=== PATIENT | female | born 1965 | race Caucasian/White ===

== ENCOUNTER → 2024-01-20 08:25 | Outpatient (REF) | payer OTHER, SELFPAY | LOC: WDC 08:25 | PROVIDERS: ATTENDING PHYSICIAN Obstetrics & Gynecology Gynecology; FAMILY PHYSICIAN Family Medicine | DX: Z12.31 Encounter for screening mammogram for malignant neoplasm of breast (principal) | CPT/HCPCS: 77063; 77067 ==

== ENCOUNTER → 2024-03-02 13:55 | Outpatient (REF) | payer OTHER, SELFPAY | LOC: PAVMRI 13:55 | PROVIDERS: ATTENDING PHYSICIAN Family Medicine | DX: M25.511 Pain in right shoulder (principal); S49.91XA Unspecified injury of right shoulder and upper arm, initial encounter; M25.611 Stiffness of right shoulder, not elsewhere classified | CPT/HCPCS: 73221 ==

== ENCOUNTER → 2024-07-05 09:48 | Outpatient (REF) | payer OTHER, SELFPAY | LOC: RAD 09:48 | PROVIDERS: ATTENDING PHYSICIAN Family Medicine | DX: K21.9 Gastro-esophageal reflux disease without esophagitis (principal) | CPT/HCPCS: 74246 ==

== ENCOUNTER → 2024-08-06 06:34 | Day surgery (SDC) | payer OTHER, SELFPAY | LOC: GI 06:34 | PROVIDERS: ATTENDING PHYSICIAN Internal Medicine; FAMILY PHYSICIAN Family Medicine | PROC: 0DB38ZX Excision of Lower Esophagus, Via Natural or Artificial Opening Endoscopic, Diagnostic (ICD-10-PCS; 2024-08-06) | PROC: 0DB68ZX Excision of Stomach, Via Natural or Artificial Opening Endoscopic, Diagnostic (ICD-10-PCS; 2024-08-06) | PROC: 0DB18ZX Excision of Upper Esophagus, Via Natural or Artificial Opening Endoscopic, Diagnostic (ICD-10-PCS; 2024-08-06) | PROC: 0DB98ZX Excision of Duodenum, Via Natural or Artificial Opening Endoscopic, Diagnostic (ICD-10-PCS; 2024-08-06) | PROC: 0DB88ZX Excision of Small Intestine, Via Natural or Artificial Opening Endoscopic, Diagnostic (ICD-10-PCS; 2024-08-06) | DX: K21.9 Gastro-esophageal reflux disease without esophagitis (principal); K44.9 Diaphragmatic hernia without obstruction or gangrene; K31.89 Other diseases of stomach and duodenum | CPT/HCPCS: 43239; 88305; 88342 ==

== ENCOUNTER 2024-08-24 12:46 | Emergency (ER) | payer OTHER, SELFPAY ==
[2024-08-24 12:55] VITALS: BP 163/88
--- NOTE | 2024-08-24 14:26 | ED.GENMED ---
History of Present Illness
General
Chief Complaint: Fall
Time Seen by Provider: 08/24/24 13:55
History of Present Illness
History of Present Illness:
Patient is a 59-year-old woman presenting to the emergency department after a fall. Patient states that she was walking her dog when she slipped and fell landing on her bottom and landing on her left elbow. Did not hit her head or lose
consciousness. She is not on a blood thinner. She was able to ambulate. Her only complaint is her left elbow. She does note some mild swelling. No numbness tingling. No weakness. No trauma elsewhere.
Phy Exam
Physical Exam
Physical Exam:
GENERAL: no acute distress
HEENT: atraumatic, extraocular muscles intact, no signs of entrapment, dentition intact, no other obvious trauma
NECK: no midline tenderness, normal range of motion, no other obvious trauma
BACK: no midline tenderness, no other obvious trauma
CHEST: no tenderness, no flail segment, no subcutaneous emphysema, no other obvious trauma
LUNGS: clear to auscultation bilaterally
CARDIOVASCULAR: regular rate and rhythm
ABDOMEN: soft, non-tender, no masses, no other obvious trauma
PELVIS: stable, no obvious injury
EXTREMITIES: moving all extremities, distal pulses intact, tenderness to the left elbow with slightly limited range of motion secondary to pain
NEUROLOGIC: awake, alert x 3, no focal deficits
Course
Orders/Labs/Results
Orders:
Orders
08/24/24 12:58
CR Elbow - Left Min 3 Views Urgent
Comment:
Reason For Exam: pain
Forearm, Left 2 View [CR Forearm - Left 2 View] Urgent
Comment:
Reason For Exam: pain
08/24/24 14:19
Sling Left-Treatment ONCE
Ibuprofen [Motrin] 800 mg PO NOW STA
Vital Signs
Initial and Last Documented VS:
Initial Vital Signs
Temp Pulse Resp BP Pulse Ox
98.1 F 112 20 163/88 99
08/24/24 12:55 08/24/24 12:55 08/24/24 12:55 08/24/24 12:55 08/24/24 12:55
Last Documented Vital Signs
Temp Pulse Resp BP Pulse Ox
98.1 F 112 20 163/88 99
08/24/24 12:55 08/24/24 12:55 08/24/24 12:55 08/24/24 12:55 08/24/24 12:55
MDM/Problems Addressed
Differential Diagnosis Includes:
Patient is a 59-year-old woman presenting to the emergency department left elbow pain after a mechanical fall. Vitals are notable for hypertension and exam does show tenderness over the left elbow with distal pulse 6 intact and she is
neurovascularly intact. Concern for fracture. X-ray per my interpretation with radial head fracture. Will place patient in sling and pain control. Patient educated on early mobility after 5 to 7 days in sling. Patient given orthopedic surgery
for follow-up. Strict return precautions given including worsening numbness tingling discoloration or worsening pain. Will discharge this time.
*Critical Care Note
Total Time (30-74mins, 75-104mins- exclusive of procedures): Not Applicable
ED Attending Note
-
Portions of this chart may have been created with voice recognition software.� Occasional wrong word or��sound alike� substitutions may have occurred due to the inherent limitations of voice recognition software.
Discharge Plan
Departure
Patient Disposition: Home (Routine Discharge)
Date of Disposition: 08/24/24
Time of Disposition: 14:37
Patient with high blood pressure during this ER visit?: Yes
Discharge Problem:
Fracture of head of left radius
Instructions: How to Use a Shoulder Sling ED, Elbow Fracture, Adult ED
Referrals:
Marquise Bass DO [Family Provider] -
Jose Angel Bosch MD [Active] -
Activity Restrictions/Additional Instructions:
You were seen in the Emergency Department today for an elbow fracture. Please follow-up with orthopedics as discussed.
We would like for you to follow up with your primary care physician for further evaluation. If you experience fever, worsening of your symptoms, or develop any other new or concerning symptoms, please return to the Emergency Department immediately.
Please see the attached sheet for additional information.
Interventions
Interventions:
*Risk Screen - Suicide Last Done: 08/24/24 12:55
*General Assessment Last Done: 08/24/24 14:35
*Neglect/Abuse Screening Last Done: 08/24/24 14:35
ED-Musculoskeletal Assessment Last Done: 08/24/24 14:34
Discharge Date and Time
Print Language: MALIAN
[2024-08-24] MEDS: MOTRIN 800 MG PO (14:30)
[2024-08-24 14:37] VITALS: BP 124/87
== END 2024-08-24 14:49 | disposition home or self-care (01) ==
LOC: EMR 12:46
PROVIDERS: EMERGENCY PHYSICIAN Student in an Organized Health Care Education/Training Program; FAMILY PHYSICIAN Family Medicine
DX: S52.122A Displaced fracture of head of left radius, initial encounter for closed fracture (principal); W01.0XXA Fall on same level from slipping, tripping and stumbling without subsequent striking against object, initial encounter; Y93.K1 Activity, walking an animal
CPT/HCPCS: 99283; 73080; 73090

== ENCOUNTER 2024-10-29 14:29 | Inpatient (IN) | payer OTHER, SELFPAY ==
[2024-10-12 11:14] LABS: Hematocrit 42.1 % (37.0-47.0); Hemoglobin 13.9 g/dL (12.0-16.0); Mean Corpuscular Hgb 27.9 pg (27.0-31.0); Mean Corpuscular Volume 84.4 fL (81.0-99.0); Mean Platelet Volume 10.8 fL (7.4-10.4); Platelet Count 238 10^3/uL (130-400); Red Blood Cell Count 4.99 10^6/uL (4.20-5.40); Red Cell Dist. Width 12.2 % (11.5-14.5); White Blood Cell Count 6.9 10^3/uL (4.8-10.8)
[2024-10-12 11:44] LABS: Blood Urea Nitrogen 11 mg/dl (7-17); Calcium 9.3 mg/dl (8.4-10.2); Carbon Dioxide 27 mmol/L (22-30); Chloride 101 mmol/L (98-107); Glucose 91 mg/dl (70-99); Potassium 4.3 mmol/L (3.5-5.1); Sodium 136 mmol/L (135-145); eGFR > 60.00
[2024-10-12 12:52] VITALS: BMI 33.0
[2024-10-29] VITALS (21 sets, daily range): BP systolic 95–118; BP diastolic 50–84; BMI 33.0
[2024-10-29] MEDS: NORMOSOL-R/PLASMALYTE-A 1000 IV (09:58)
[2024-10-29] MEDS: TYLENOL 1000 MG PO (09:58)
[2024-10-29] MEDS: TRANSDERM-SCOP 1 PATCH TRANSDERM (10:14)
[2024-10-29] MEDS: EMEND 40 MG PO (10:14)
--- NOTE | 2024-10-29 14:26 | W.IMMPOSTOP ---
Surgical Immed Post Op Note
-
Primary Surgeon: Nelda
Assisting Surgeon: RUFINO Garrett
Pre-op Diagnosis: Paraesophageal hernia
Post-op Diagnosis: Paraesophageal hernia
Procedure Performed: Laparoscopic paraesophageal hernia repair with Toupet fundoplication and intra-operative EGD
Anesthesia Type: General
Specimen / Cultures: None
Estimated Blood Loss: 23 cc
Complications: None
Operative Findings:
1. Large type III PEH with 50% of stomach in chest
2. > 3 cm esophageal mobilization, bl vagi protected, no pleural violation
3. Posterior crural closure with 0 silk x3 (1 pledget, 2 non)
4. Loose floppy 2 cm Toupet fundoplication over 58 Fr Bougie
5. Post repair EGD with no stricturing, trauma,and appropriately oriented wrap
[2024-10-29] MEDS: DILAUDID 0.25 MG IV ×2 (15:08→15:48)
[2024-10-29] MEDS: OFIRMEV 100 IV ×2 (15:51→23:05)
[2024-10-29] MEDS: NORMOSOL-R/PLASMALYTE-A IV (18:39)
[2024-10-29] MEDS: DILAUDID 0.5 MG IV (20:41)
[2024-10-29] MEDS: OFIRMEV IV (23:05)
[2024-10-30] MEDS: NORMOSOL-R/PLASMALYTE-A 1000 IV ×2 (01:43→09:17)
[2024-10-30 03:00] VITALS: BP 102/57
[2024-10-30] MEDS: OFIRMEV 100 IV ×2 (04:46→09:17)
[2024-10-30 07:05] VITALS: BP 117/71
[2024-10-30 08:05] LABS: Hematocrit 37.5 % (37.0-47.0); Hemoglobin 12.7 g/dL (12.0-16.0); Mean Corp Hgb Conc. 33.9 g/dL (33.0-37.0); Mean Corpuscular Hgb 28.3 pg (27.0-31.0); Mean Corpuscular Volume 83.5 fL (81.0-99.0); Mean Platelet Volume 9.7 fL (7.4-10.4); Platelet Count 232 10^3/uL (130-400); Red Blood Cell Count 4.49 10^6/uL (4.20-5.40); Red Cell Dist. Width 12.4 % (11.5-14.5); White Blood Cell Count 11.3 10^3/uL (4.8-10.8)
[2024-10-30 08:35] LABS: Blood Urea Nitrogen 8 mg/dl (7-17); Calcium 7.7 mg/dl (8.4-10.2); Carbon Dioxide 22 mmol/L (22-30); Chloride 100 mmol/L (98-107); Estimated Creatinine Clearance 110 ml/min; Glucose 91 mg/dl (70-99); Potassium 4.8 mmol/L (3.5-5.1); Sodium 136 mmol/L (135-145); eGFR > 60.00
[2024-10-30] MEDS: DILAUDID 0.5 MG IV (09:40)
[2024-10-30 11:00] VITALS: BP 119/73
--- NOTE | 2024-10-30 12:13 | W.PN.GS2 ---
Today's Communication / Plan
-
diet advancement
dispo planning
Assessment / Plan
-
59 yo female who is POD #1 lap PEH repair with toupet fundoplication and intraop EGD
AFVSS
Following expected post op course
--Clear liquids for breakfast than ok to advance to FLD/soft diet if tolerating
--Will change analgesics to PO
--OOB/Ambulate
--D/C IVF
--VTE ppx with scd's and lovenox
Tentative d/c later today vs tomorrow pending diet tolerance and pain control
Subjective Data
-
Date of Service: October 30, 2024
Patient seen and examined at bedside with Dr. Queen. Nohemi n/v. Minimal soreness. Ambulating well.
Objective Data
-
Intake and Output
10/29/24 10/30/24 10/31/24
06:59 06:59 06:59
Intake Total 1865 / 1865
Output Total 800 / 800
Balance 1065 / 1065
Intake:
IV fluids (Total) 1565 / 1565
Normosol 365 / 365
IV piggybacks 300 / 300
Output:
Urine, Morfin 100 / 100
Urine, Voided 700 / 700
Vital Signs
Temp Pulse Resp BP Pulse Ox
97.6 F 52 18 119/73 98
10/30/24 11:00 10/30/24 11:00 10/30/24 11:00 10/30/24 11:00 10/30/24 11:00
Lab Results
10/30/24 07:35
10/30/24 07:35
Calcium 7.7 mg/dl (8.4-10.2) L 10/30/24 07:35
Physical Exam
-
NAD
ABD soft, nd, mild incisional tenderness
Lap incisions well approximated with intact glue
[2024-10-30 14:50] VITALS: BP 103/67
--- NOTE | 2024-10-30 14:59 | W.PN.SURGUPD ---
Surgical Update
Surgical Update
s/b: patient seen and examined at bedside with family present. Tolerated potato soup for lunch. Feels well. No significant pain. Some mild throat soreness but no c/o dysphagia. Notes some facial flushing but denies itching.
a: Mild facial flushing noted; l>r. No periorbital or oral edema. No sign of angioedema. lips and tongue without swelling.
r: Will remove scopolamine patch from behind right ear and start prn Benadryl 25mg PO. Continue to follow with serial exams.
[2024-10-30] MEDS: ROXICODONE ORAL SOLUTION 5 MG PO ×2 (16:34→22:14)
[2024-10-30] MEDS: LOVENOX 40 MG SC (18:01)
--- NOTE | 2024-10-30 19:00 | PTCARENOTE ---
In the midst of report, realized that [facility] did not save prior documentation for IV Dilaudid administration. Had administered IV Dilaudid 0.5 at 0940. Manually documented administration as syringe is now in sharps bin/I'm unable to scan it out.
[2024-10-30 23:43] VITALS: BP 109/70
[2024-10-31] MEDS: ROXICODONE ORAL SOLUTION 5 MG PO ×3 (04:56→15:00)
[2024-10-31 05:36] LABS: Hematocrit 40.8 % (37.0-47.0); Hemoglobin 13.8 g/dL (12.0-16.0); Mean Corp Hgb Conc. 33.8 g/dL (33.0-37.0); Mean Corpuscular Hgb 28.3 pg (27.0-31.0); Mean Corpuscular Volume 83.6 fL (81.0-99.0); Mean Platelet Volume 10.5 fL (7.4-10.4); Platelet Count 217 10^3/uL (130-400); Red Blood Cell Count 4.88 10^6/uL (4.20-5.40); Red Cell Dist. Width 12.5 % (11.5-14.5); White Blood Cell Count 11.1 10^3/uL (4.8-10.8)
[2024-10-31 06:01] LABS: Blood Urea Nitrogen 5 mg/dl (7-17); Carbon Dioxide 26 mmol/L (22-30); Chloride 102 mmol/L (98-107); Estimated Creatinine Clearance 110 ml/min; Glucose 96 mg/dl (70-99); Potassium 4.5 mmol/L (3.5-5.1); Sodium 134 mmol/L (135-145); eGFR > 60.00
[2024-10-31 07:05] VITALS: BP 121/75
--- NOTE | 2024-10-31 10:35 | W.PN.GS2 ---
Today's Communication / Plan
-
Discharge
Assessment / Plan
-
59 yo female who is POD #2 lap PEH repair with toupet fundoplication and intraop EGD
AFVSS
Following expected post op course
Ok for discharge. Her was on the telephone, all questions answered.
Subjective Data
-
Date of Service: October 31, 2024
Still with some abdominal soreness but it is manageable. The facial flushing has resolved. She is tolerating a diet.
Objective Data
-
Intake and Output
10/30/24 10/31/24 11/01/24
06:59 06:59 06:59
Intake Total 1865 / 1865 1140 / 1140 960 / 960
Output Total 800 / 800 1450 / 1450 1350 / 1350
Balance 1065 / 1065 -310 / -310 -390 / -390
Intake:
Oral fluids 1140 / 1140 960 / 960
IV fluids (Total) 1565 / 1565
Normosol 365 / 365
IV piggybacks 300 / 300
Output:
Urine, Ferrer 100 / 100
Urine, Voided 700 / 700 1450 / 1450 1350 / 1350
Vital Signs
Temp Pulse Resp BP Pulse Ox
98.5 F 74 18 121/75 95
10/31/24 07:05 10/31/24 07:05 10/31/24 07:05 10/31/24 07:05 10/31/24 07:05
Lab Results
10/31/24 04:13
10/31/24 04:13
Calcium 9.0 mg/dl (8.4-10.2) 10/31/24 04:13
Physical Exam
-
Abd: soft and nontender. The incisions are healing well.
Ext: no edema/tenderness
Patient has a ferrer catheter: No
Patient has a central line: No
--- NOTE | 2024-10-31 10:43 | CM ---
Met with pt at bedside
Pt reports she lives with her in a multi-story town home; 3steps to enter, 12 steps to 2nd fl
Independent, employed, drives
DME - none
SNF/HH - no past hx
Has ride at discharge
PCP - Marquise Bass
Pharm - [facility] on [address]
POD #2 lap PEH repair with toupet fundoplication and intraop EGD
For d/c today
Has transport home
Plan - home no needs
[2024-10-31] MEDS: TORADOL 10 MG IV (10:46)
[2024-10-31 14:59] VITALS: BP 117/81
--- NOTE | 2024-10-31 15:26 | W.DS.TRANS ---
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
-
Discharge Instructions:
Sleep Apnea Risk Low
Discharge Diagnosis/Procedures Laparoscopic paraesophageal hernia with
fundoplication and EGD
Diet Other diet
Additional Diets Follow a soft food diet. Chew food thoroughly.
Eat small frequent meals. Avoid large cuts of
meats, bulky breads, and dry positives. Follow
this diet for at least 3 to 4 weeks
postoperatively and until evaluated by her
surgeon.
Activity No strenuous activity
Additional Activity No heavy lifting (>20 lbs) or strenuous
activities for 4 to 6 weeks postoperatively
Driving Restrictions No driving if too sore or taking narcotics
Bathing Restrictions OK to Shower
Wound Care Keep incisions clean and dry. Glue will flake
off in 2 to 3 weeks. Stitches will dissolve.
Use ice to the abdomen to reduce any bruising or
swelling.
Instructions:
Stand-Alone Forms:
Changes to Home Medications: No
Discharge Medications:
DC Medications w/original date entered in [employer]
cholecalciferol (vitamin D3) 50 mcg (2,000 unit) tablet (Vitamin D3) 50 mcg PO DAILY 10/25/24
docusate sodium 100 mg tablet 100 mg PO BID 10/25/24
guselkumab 100 mg/mL subcutaneous syringe (Tremfya) 100 mg SC Q8W 10/25/24
melatonin 12 mg tablet 12 mg PO HS 10/25/24
multivitamin with minerals 1 tab PO DAILY 10/25/24
rosuvastatin 10 mg tablet 10 mg PO DAILY 10/25/24
spironolactone 25 mg tablet 25 mg PO HS 10/25/24
valerian root 1,000 mg capsule 2,400 mg PO HS 10/25/24
acetaminophen 325 mg tablet 650 mg (2 x 325 mg) PO Q4HPRN PRN mild pain #1 tab 10/30/24
ibuprofen 200 mg tablet 400 - 600 mg (2 - 3 x 200 mg) PO Q6HPRN PRN moderate pain #1 tab 10/30/24
oxycodone 5 mg/5 mL oral solution 5 mg (5 mL) PO Q4H PRN severe pain #100 mL 10/30/24
Home Medication Changes
Pending Results: No
== END 2024-10-31 15:48 | disposition home or self-care (01) | DRG 328 ==
LOC: 2 SOUTH 14:29
PROVIDERS: ADMITTING PHYSICIAN Surgery; FAMILY PHYSICIAN Family Medicine
PROC: 0BQT4ZZ Repair Diaphragm, Percutaneous Endoscopic Approach (ICD-10-PCS; 2024-10-29)
PROC: 0DV44ZZ Restriction of Esophagogastric Junction, Percutaneous Endoscopic Approach (ICD-10-PCS; 2024-10-29)
PROC: 0DJ08ZZ Inspection of Upper Intestinal Tract, Via Natural or Artificial Opening Endoscopic (ICD-10-PCS; 2024-10-29)
DX: K44.9 Diaphragmatic hernia without obstruction or gangrene (principal); K21.9 Gastro-esophageal reflux disease without esophagitis; E66.9 Obesity, unspecified; K58.9 Irritable bowel syndrome, unspecified; E78.00 Pure hypercholesterolemia, unspecified; Z88.0 Allergy status to penicillin; Z79.899 Other long term (current) drug therapy; Z68.33 Body mass index [BMI] 33.0-33.9, adult
CPT/HCPCS: 43280; 36415; 80048; 85027; 93005

== ENCOUNTER → 2025-02-15 12:25 | Outpatient (REF) | payer OTHER, SELFPAY | LOC: WDC 12:25 | PROVIDERS: ATTENDING PHYSICIAN Obstetrics & Gynecology Gynecology; FAMILY PHYSICIAN Family Medicine | DX: Z12.31 Encounter for screening mammogram for malignant neoplasm of breast (principal) | CPT/HCPCS: 77063; 77067 ==

== ENCOUNTER → 2025-03-14 09:04 | Outpatient (REF) | payer OTHER, SELFPAY | LOC: RAD 09:04 | PROVIDERS: ATTENDING PHYSICIAN Surgery; FAMILY PHYSICIAN Family Medicine | DX: K21.9 Gastro-esophageal reflux disease without esophagitis (principal); Z98.890 Other specified postprocedural states; Z87.19 Personal history of other diseases of the digestive system | CPT/HCPCS: 74246 ==

== ENCOUNTER 2025-06-08 14:24 | Inpatient (IN) | payer OTHER, SELFPAY ==
[2025-05-27 10:58] LABS: Hematocrit 41.3 % (37.0-47.0); Hemoglobin 13.7 g/dL (12.0-16.0); Mean Corp Hgb Conc. 33.2 g/dL (33.0-37.0); Mean Corpuscular Volume 84.5 fL (81.0-99.0); Platelet Count 284 10^3/uL (130-400); Red Cell Dist. Width 11.9 % (11.5-14.5)
[2025-05-27 11:23] LABS: Blood Urea Nitrogen 9 mg/dl (7-17); Calcium 9.5 mg/dl (8.4-10.2); Carbon Dioxide 28 mmol/L (22-30); Chloride 101 mmol/L (98-107); Glucose 86 mg/dl (70-99); Potassium 4.7 mmol/L (3.5-5.1); Sodium 137 mmol/L (135-145); eGFR > 60.00
[2025-05-27 14:07] VITALS: BMI 32.1
[2025-06-08] VITALS (13 sets, daily range): BP systolic 20–132; BP diastolic 70–88; BMI 32.1
[2025-06-08] MEDS: TYLENOL 1000 MG PO (08:52)
[2025-06-08] MEDS: NORMOSOL-R/PLASMALYTE-A 1000 IV ×2 (08:53→15:27)
--- NOTE | 2025-06-08 13:49 | W.IMMPOSTOP ---
Surgical Immed Post Op Note
-
Primary Surgeon: Nelda
Assisting Surgeon: Carly
Pre-op Diagnosis: Recurrent paraesophageal hernia
Post-op Diagnosis: Recurrent paraesophageal hernia
Procedure Performed: Laparoscopic recurrent paraesophageal hernia repair with Toupet fundoplication, gastropexy and intra-operative EGD
Anesthesia Type: General
Specimen / Cultures: None
Estimated Blood Loss: 51 cc
Complications: None
Operative Findings:
1. Small/moderate recurrent hernia with dilated crural opening and portion of wrap above the diaphragm, large tongue of omentum posteriorly, all stitches intact
2. Complete esophageal dissection and mobilization > 3 cm
3. Crural closure with 0 silk x 2 (one pledget, one non)
4. Wrap taken down and loose floppy 2 cm Toupet fundoplication re-created with 2-0 silk over EGD scope
5. Posterior vagus identified, anterior difficult to identify with scar, LEFT pleura violated
6. Gastropexy with 0 silk x2 along greater curve
7. 19 Fr ZENON into LUQ and within paraesophageal space
8. EGD x2 pre-repair confirmed to esophageal or gastric injury and prior repair completely taken down, post-repair with no stricturing and appropriately oriented wrap
[2025-06-08] MEDS: DILAUDID 0.25 MG IV (14:04)
[2025-06-08] MEDS: OFIRMEV 100 IV ×2 (14:31→21:21)
[2025-06-08] MEDS: TORADOL 15 MG IV (15:08)
--- NOTE | 2025-06-08 16:47 | PTCARENOTE ---
Pt arrived to 2S in bed. Full assessment completed. Abdominal incisions C/D/I, glued and MOUNIKA. L abdomen ZENON drain site C/D/I, sanguinous output emptied. Nasal cannula maintained. IVF infusing per order. Pt educated on NPO status and to ring for
assistance with ambulation, verbalized understanding. Bed locked and in the lowest position, safety maintained. Oriented to room and call alba, spouse at bedside.
[2025-06-08] MEDS: DILAUDID 0.5 MG IV (17:26)
[2025-06-08] MEDS: VALIUM INJECTION 2.5 MG IV (21:21)
[2025-06-09 00:19] VITALS: BP 113/71
[2025-06-09] MEDS: NORMOSOL-R/PLASMALYTE-A 1000 IV ×3 (01:38→22:19)
[2025-06-09] MEDS: OFIRMEV 100 IV ×2 (02:59→09:26)
[2025-06-09 03:19] VITALS: BP 111/65
[2025-06-09] MEDS: DILAUDID 0.5 MG IV (06:21)
--- NOTE | 2025-06-09 07:05 | W.PN.GS2 ---
Today's Communication / Plan
-
-- Clears ADAT to fulls
-- Pain control: Tylenol, Toradol (pending labs), Oxycodone (pending tolerance of clears), IV Dilaudid PRN
-- IVF
-- Can start home meds if tolerates clears
-- OOB/ambulate
Assessment / Plan
-
Patient is a 60 yo F POD#1 s/p laparoscopic recurrent paraesophageal hernia repair with fundoplication and gastropexy
AVSS
Labs pending
Recovering well. No major postoperative concerns. Not surprising that she is having slightly more pain following this operation given the additional stitching that was performed. Pending her labs will be able to start Toradol and transition her
from IV to p.o. medications. Plan for trial of clear liquids with advancement to fulls throughout the day.
-- Clears ADAT to fulls
-- Pain control: Tylenol, Toradol (pending labs), Oxycodone (pending tolerance of clears), IV Dilaudid PRN
-- IVF
-- Can start home meds if tolerates clears
-- DVT: Lovenox
-- GI: none needed
-- OOB/ambulate
Subjective Data
-
Date of Service: June 09, 2025
Reports abdominal soreness. No nausea or vomiting. No dizziness or lightheadedness. No fevers. No ambulation. Voiding.
Objective Data
-
Intake and Output
06/08/25 06/09/25 06/10/25
06:59 06:59 06:59
Intake Total 2450 / 2450
Output Total 690 / 690
Balance 1760 / 1760
Intake:
IV fluids (Total) 1650 / 1650
Normosol 250 / 250
Ofirmev 100 / 100
IV piggybacks 800 / 800
Output:
Drain Output (Total)
Left Abdomen Richie-Ramírez
Urine, Ferrer 600 / 600
Other:
Number of approximated LARGE 1
amounts of urine
Vital Signs
Temp Pulse Resp BP Pulse Ox
98.6 F 68 18 111/65 98
06/09/25 03:19 06/09/25 03:19 06/09/25 03:19 06/09/25 03:19 06/09/25 03:19
Calcium 9.5 mg/dl (8.4-10.2) 05/27/25 09:21
Physical Exam
-
Gen: NAD
Abd: soft, moderate tenderness, ND, obese, non-peritoneal, incisions c/d/i - no erythema, ecchymosis or drainage, ZENON serosang
Patient has a ferrer catheter: No
Patient has a central line: No
[2025-06-09 07:15] VITALS: BP 114/66
[2025-06-09 08:09] LABS: Hematocrit 37.9 % (37.0-47.0); Hemoglobin 13.2 g/dL (12.0-16.0); Mean Corp Hgb Conc. 34.8 g/dL (33.0-37.0); Mean Corpuscular Volume 82.2 fL (81.0-99.0); Platelet Count 253 10^3/uL (130-400); Red Cell Dist. Width 11.7 % (11.5-14.5)
[2025-06-09 08:12] LABS: Blood Urea Nitrogen 7 mg/dl (7-17); Calcium 8.8 mg/dl (8.4-10.2); Carbon Dioxide 24 mmol/L (22-30); Chloride 108 mmol/L (98-107); Estimated Creatinine Clearance 104 ml/min; Glucose 87 mg/dl (70-99); Potassium 4.4 mmol/L (3.5-5.1); Sodium 137 mmol/L (135-145); eGFR > 60.00
--- NOTE | 2025-06-09 09:19 | CM ---
CM following re: discharge planning.
Reviewed pt's chart, met with pt.
Pt is a 60 year old female, admitted with primary dx of Recurrent paraesophageal hernia. POD#1 s/p laparoscopic recurrent paraesophageal hernia repair with fundoplication and gastropexy.
Pt reports she lives with in a 2SH townhouse, has 2 supportive children. 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
PCP: Marquise Bass
pharmacy: [facility]
D/C plan: home with anticipated no needs. to transport at discharge.
CM will follow with discharge plan updates as hospitalization progresses
[2025-06-09 11:10] VITALS: BP 120/71
[2025-06-09] MEDS: ROXICODONE 5 MG PO ×3 (12:23→22:19)
[2025-06-09 15:20] VITALS: BP 110/70
[2025-06-09] MEDS: LOVENOX 40 MG SC (18:14)
[2025-06-09 23:11] VITALS: BP 135/82
[2025-06-10 03:00] VITALS: BP 144/88
[2025-06-10] MEDS: ROXICODONE 5 MG PO ×3 (03:01→13:26)
[2025-06-10 07:00] VITALS: BP 128/89
[2025-06-10] MEDS: CRESTOR 10 MG PO (09:12)
[2025-06-10] MEDS: COLACE 100 MG PO ×2 (09:12→19:54)
[2025-06-10] MEDS: NORMOSOL-R/PLASMALYTE-A 1000 IV (09:12)
[2025-06-10] MEDS: TORADOL 15 MG IV ×3 (09:13→21:40)
--- NOTE | 2025-06-10 09:35 | W.PN.GS2 ---
Today's Communication / Plan
-
-- Fulls, possible soft foods this afternoon
-- IVF, can HLIV if tolerating PO by this afternoon
-- Home meds
-- OOB/ambulate
-- DC ZENON
Assessment / Plan
-
Patient is a 60 yo F POD#2 s/p laparoscopic recurrent paraesophageal hernia repair with fundoplication and gastropexy
AVSS
No repeat labs
Recovering well. No major postoperative concerns. Pain issues likely related to the gastropexy and postsurgical in nature. Possible that her ZENON drain is contributing to some of her discomfort. Given her stable Hb, minimal outputs, and stability
on room air will removed today. Continue with full liquid diet, possible advancement to a soft food diet this afternoon depending tolerance. Continue with multimodal pain control.
-- Fulls, possible soft foods this afternoon
-- Pain control: Tylenol, Toradol, Oxycodone, IV Dilaudid PRN
-- IVF, can HLIV if tolerating PO by this afternoon
-- Home meds
-- DVT: Lovenox
-- GI: none needed
-- OOB/ambulate
-- DC ZENON
Subjective Data
-
Date of Service: June 10, 2025
Discomfort primarily at the LEFT costal region and bilateral shoulders. No nausea or vomiting. Denies any issues with dysphagia. Does report some lower crampy abdominal pain. No flatus or BM (chronic issues with constipation). Minimal
ambulation. Voiding
Objective Data
-
Intake and Output
06/09/25 06/10/25 06/11/25
06:59 06:59 06:59
Intake Total 2450 / 2450 3360 / 3360
Output Total 690 / 690 20 / 20
Balance 1760 / 1760 3340 / 3340
Intake:
Oral fluids 960 / 960
IV fluids (Total) 1650 / 1650 2300 / 2300
Normosol 250 / 250
Ofirmev 100 / 100
IV piggybacks 800 / 800 100 / 100
Output:
Drain Output (Total)
Left Abdomen Richie-Ramírez
Urine, Ferrer 600 / 600
Other:
Number of approximated MODERATE 1
amounts of urine
Number of approximated LARGE 1 1
amounts of urine
Vital Signs
Temp Pulse Resp BP Pulse Ox
98.5 F 81 30 128/89 98
06/10/25 07:00 06/10/25 07:00 06/10/25 07:00 06/10/25 07:00 06/10/25 07:00
Lab Results
06/09/25 07:49
06/09/25 07:49
Calcium 8.8 mg/dl (8.4-10.2) 06/09/25 07:49
Physical Exam
-
Gen: NAD
Abd: soft, tender in LUQ, obese, ND, non-peritoneal, incisions c/d/i - no erythema or drainage, mild ecchymosis in LUQ
Patient has a ferrer catheter: No
Patient has a central line: No
[2025-06-10] MEDS: TYLENOL ORAL SOLUTION 650 MG PO (13:15)
--- NOTE | 2025-06-10 13:26 | CM ---
CM following re: discharge planning.
Reviewed pt's chart, met with pt.
Pt is a 60 year old female, admitted with primary dx of Recurrent paraesophageal hernia. POD#2 s/p laparoscopic recurrent paraesophageal hernia repair with fundoplication and gastropexy.
Pt reports she lives with in a 2[address] townhouse, has 2 supportive children. 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
PCP: Marquise Bass
pharmacy: [facility]
D/C plan: home with anticipated no needs. to transport at discharge.
CM will follow with discharge plan updates as hospitalization progresses
[2025-06-10 15:00] VITALS: BP 122/86
[2025-06-10] MEDS: TYLENOL PO (16:05)
[2025-06-10] MEDS: LOVENOX 40 MG SC (18:06)
[2025-06-10] MEDS: TYLENOL 650 MG PO (19:54)
[2025-06-10] MEDS: MELATONIN 12 MG PO (22:07)
[2025-06-10] MEDS: ALDACTONE 25 MG PO (22:07)
[2025-06-10 23:00] VITALS: BP 145/73
[2025-06-11] MEDS: TYLENOL PO ×2 (00:40→04:59)
[2025-06-11] MEDS: TORADOL 15 MG IV ×4 (02:11→20:00)
[2025-06-11] MEDS: NORMOSOL-R/PLASMALYTE-A IV ×3 (03:11→11:58)
[2025-06-11 07:10] VITALS: BP 130/84
[2025-06-11] MEDS: CRESTOR 10 MG PO (08:36)
[2025-06-11] MEDS: COLACE 100 MG PO ×2 (08:36→19:55)
[2025-06-11] MEDS: TYLENOL 650 MG PO ×5 (08:36→23:15)
--- NOTE | 2025-06-11 12:16 | W.PN.GS2 ---
Today's Communication / Plan
-
OK for discharge when ambulating well.
PT consult
Assessment / Plan
-
Patient is a 60 yo F POD#3 s/p laparoscopic recurrent paraesophageal hernia repair with fundoplication and gastropexy
AVSS
No repeat labs
Recovering well. No major postoperative concerns. Pain is better after the drain was removed. Continue with post-Noel diet.
-- Soft foods
-- Pain control: Tylenol, Toradol, Oxycodone, IV Dilaudid PRN
-- Stop IVF
-- Home meds
-- DVT: Lovenox
-- GI: none needed
-- OOB/ambulate - PT consulted
Subjective Data
-
Date of Service: June 11, 2025
Tolerating a soft diet and her pain is managed with oral meds.
She states she does not feel strong enough to walk and is unsteady.
Objective Data
-
Intake and Output
06/10/25 06/11/25 06/12/25
06:59 06:59 06:59
Intake Total 3360 / 3360 1440 / 1440
Output Total 20 / 20
Balance 3340 / 3340 1440 / 1440
Intake:
Oral fluids 960 / 960 1440 / 1440
IV fluids (Total) 2300 / 2300
IV piggybacks 100 / 100
Output:
Drain Output (Total) 20 /
Left Abdomen Richie-Ramírez 20 /
Other:
Number of approximated MODERATE 1 2
amounts of urine
Number of approximated LARGE 1
amounts of urine
Vital Signs
Temp Pulse Resp BP Pulse Ox
98.1 F 74 16 130/84 95
06/11/25 07:10 06/11/25 07:10 06/11/25 07:10 06/11/25 07:10 06/11/25 07:10
Lab Results
06/09/25 07:49
06/09/25 07:49
Calcium 8.8 mg/dl (8.4-10.2) 06/09/25 07:49
Physical Exam
-
NAD
Abd: soft, nondistended and nontender. The incisions are healing well. Drain site clean.
Patient has a ferrer catheter: No
Patient has a central line: No
[2025-06-11 15:15] VITALS: BP 116/78
[2025-06-11] MEDS: LOVENOX 40 MG SC (17:35)
[2025-06-11] MEDS: ALDACTONE 25 MG PO (22:10)
[2025-06-11] MEDS: MELATONIN 12 MG PO (22:11)
[2025-06-11 23:01] VITALS: BP 108/68
[2025-06-12] MEDS: TYLENOL 650 MG PO ×2 (03:00→07:54)
[2025-06-12] MEDS: TORADOL 15 MG IV ×2 (03:00→09:10)
[2025-06-12 07:15] VITALS: BP 138/89
[2025-06-12] MEDS: CRESTOR 10 MG PO (07:54)
[2025-06-12] MEDS: COLACE 100 MG PO (07:54)
--- NOTE | 2025-06-12 09:29 | W.PN.GS2 ---
Today's Communication / Plan
-
Discharge to home
Assessment / Plan
-
Patient is a 60 yo F POD#4 s/p laparoscopic recurrent paraesophageal hernia repair with fundoplication and gastropexy
AVSS
No repeat labs
Recovering well. No major postoperative concerns. Pain is better after the drain was removed. Continue with post-Noel diet.
-- Soft foods
-- Pain control: Tylenol, Toradol, Oxycodone
-- Home meds
-- DVT: Lovenox
-- GI: none needed
-- OOB/ambulate - PT consulted and cleared. Pt requesting walker, will provide script
Subjective Data
-
Date of Service: June 12, 2025
Pt seen and examined at bedside with Dr. Queen. Denies n/v. Tolerating diet. Pain more manageable today, able to ambulate better. Tolerating diet.
Objective Data
-
Intake and Output
06/11/25 06/12/25 06/13/25
06:59 06:59 06:59
Intake Total 1440 / 1440 1200 / 1200
Balance 1440 / 1440 1200 / 1200
Intake:
Oral fluids 1440 / 1440 1200 / 1200
Other:
Number of approximated MODERATE 2 4
amounts of urine
Number of unmeasured liquid
stools
Rectum 1
Vital Signs
Temp Pulse Resp BP Pulse Ox
97.6 F 78 16 138/89 96
06/12/25 07:15 06/12/25 07:15 06/12/25 07:15 06/12/25 07:15 06/12/25 07:15
Lab Results
06/09/25 07:49
06/09/25 07:49
Calcium 8.8 mg/dl (8.4-10.2) 06/09/25 07:49
Physical Exam
-
NAD
Abd: soft, nondistended and expected tenderness at incisions. The incisions are healing well. Prior drain site clean.
Patient has a ferrer catheter: No
Patient has a central line: No
--- NOTE | 2025-06-12 09:31 | W.DS.TRANS ---
Addendum entered and electronically signed by SHARMAINE Alston 06/13/25 15:49:
dictated #[id number]
Original Note:
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
-
Discharge Instructions:
Sleep Apnea Risk Low
Discharge Diagnosis/Procedures Laparoscopic paraesophageal repair with
fundoplication and gastropexy
Additional Diets Stay on a soft diet and avoid large meals. Small
frequent meals are better. Use supplement
shakes as needed to increase your protein intake
.
Activity No strenuous activity
Additional Activity Do not lift over 15lbs for the next 3-4 weeks
Driving Restrictions Do not drive while taking narcotics
Bathing Restrictions OK to Shower
Wound Care Allow the glue to flake off your incisions on
its own over the next 2-3 weeks. Ok to shower
but do not soak in tubs/pools.
Instructions:
Stand-Alone Forms:
Changes to Home Medications: No
Discharge Medications:
DC Medications w/original date entered in [employer]
cholecalciferol (vitamin D3) 50 mcg (2,000 unit) tablet (Vitamin D3) 50 mcg PO DAILY Supplement 10/25/24
docusate sodium 100 mg tablet 100 mg PO BID Gastrointestinal Issue 10/25/24
guselkumab 100 mg/mL subcutaneous syringe (Tremfya) 100 mg SC Q8W Gastrointestinal Issue 10/25/24
melatonin 12 mg tablet 12 mg PO HS Sleep 10/25/24
multivitamin with minerals 1 tab PO DAILY Supplement 10/25/24
rosuvastatin 10 mg tablet 10 mg PO DAILY High Cholesterol 10/25/24
spironolactone 25 mg tablet 25 mg PO HS Blood Pressure 10/25/24
acetaminophen 325 mg tablet 650 mg (2 x 325 mg) PO Q4HPRN PRN mild pain #1 tab 10/30/24
ibuprofen 200 mg tablet 400 - 600 mg (2 - 3 x 200 mg) PO Q6HPRN PRN moderate pain #1 tab 10/30/24
psyllium husk 0.4 gram capsule (Metamucil) 0.4 g PO BID Gastrointestinal Issue 06/02/25
Held on 06/11/25. Instructions: Resume on 06/24/25.
oxycodone 5 mg tablet 5 mg PO Q4HPRN PRN breakthrough/severe pain #8 tabs 06/11/25
Home Medication Changes
Pending Results: No
[2025-06-12 10:35] VITALS: BP 129/80
--- NOTE | 2025-06-12 11:44 | CM ---
Pt for dc today.
Pt provided a RW for dc and will provide transportation home.
No additional needs identified
== END 2025-06-12 11:57 | disposition home or self-care (01) | DRG 328 ==
LOC: 2 SOUTH 14:24
PROVIDERS: ADMITTING PHYSICIAN Surgery; FAMILY PHYSICIAN Family Medicine
PROC: 0DV44ZZ Restriction of Esophagogastric Junction, Percutaneous Endoscopic Approach (ICD-10-PCS; 2025-06-08)
PROC: 0DS64ZZ Reposition Stomach, Percutaneous Endoscopic Approach (ICD-10-PCS; 2025-06-08)
DX: K44.9 Diaphragmatic hernia without obstruction or gangrene (principal); Z88.0 Allergy status to penicillin; E66.9 Obesity, unspecified; Z68.32 Body mass index [BMI] 32.0-32.9, adult; K21.9 Gastro-esophageal reflux disease without esophagitis
CPT/HCPCS: 36415; 80048; 85027; 93005; 97162; 97530

== ENCOUNTER → 2025-08-15 17:30 | Outpatient (REF) | payer OTHER, SELFPAY | LOC: RAD 17:30 | PROVIDERS: ATTENDING PHYSICIAN Surgery; FAMILY PHYSICIAN Family Medicine | DX: Z98.890 Other specified postprocedural states (principal); Z87.19 Personal history of other diseases of the digestive system; R10.12 Left upper quadrant pain | CPT/HCPCS: 71260; 74160; Q9967 ==